=== PATIENT | male | born 1945 | race Caucasian/White ===

== ENCOUNTER → 2017-04-23 | Outpatient (CLI) | payer OTHER ==
--- NOTE | ~2017-04-23 | CT57 ---
[facility] A Service of [facility] & [facility] RADIOLOGY TEXT RESULTS PATIENT: FELICIA ROQUE LOCATION: [facility] : 45 UNIT #: [id number] AGE: [address]: TEMITOPE Bell APRN SEX: M ORDER DR: [id number] [facility] [address] [facility] [address] [place], [place] [address] [id number] O MR#: [id number] Acc #: [id number] NAME: FELICIA ROQUE : 1945 SEX: M STUDY DATE/TIME: 04/23/2017 13:08 UNIT: [facility] ROOM: STUDY DESCRIPTION: CT Chest Wo Cont Attending Physician: Temitope Sheikh Aprn Referring Physician: Temitope Sheikh Aprn Ordering Physician: Temitope Sheikh Aprn Primary Care Physician: Temitope Sheikh Aprn MEDICAL IMAGING REPORT This report is preliminary unless electronic signature is present EXAM CT chest without IV contrast. COMPARISON September 14, 2016 May 14, 2016. INDICATION 72-year-old male with chest pain for 6 months. Followup of pulmonary nodule and thoracic aortic aneurysm. FINDINGS Axial CT imaging of the chest was performed without IV contrast. Coronal sagittal reformats were constructed. Lack of IV contrast limits evaluation of vasculature and adenopathy. This CT exam was performed with one or more of the following radiation dose reduction techniques: automatic control, adjustment of mA and/or kV according to patient size, and iterative reconstruction. There is minimal bilateral gynecomastia. There is incidental note of sternalis muscles bilaterally, a normal anatomic variant. No adenopathy within the chest. Normal caliber of the pulmonary artery. Stable caliber of the ascending aorta measuring up to 3.7 cm and stable caliber of the distal aortic arch measuring up to 3.5 cm. Stable caliber of the descending thoracic aorta. Measures up to 3.1 cm. Normal heart size, without pericardial effusion. No pneumothorax. Airways are widely patent. There is moderate paraseptal emphysematous change with subpleural blebs noted in the pulmonary apices and within the dependent lower lobes. There are grossly stable tree-in-bud nodules within the posterior right upper lobe, however one of these nodules may have increased slightly in size, measuring up to 4 mm (image 40 of the axial series). This is as compared to May 14, 2016 as well as September 14, 2016. Pleural-based nodular density in the right upper lobe measuring up to approximately 4 mm is unchanged (image 34). Band-like opacity with associated nodularity is STS. [facility] A Service of [facility] RADIOLOGY TEXT RESULTS PATIENT: FELICIA ROQUE LOCATION: [facility] : 45 UNIT #: [id number] AGE: [address]: TEMITOPE Bell, TRAINING REPRESENTATIVE SEX: M ORDER DR: unchanged in the right pulmonary apex with 2 focal nodular densities measuring 4 mm and 3 mm and new 5 mm irregular nodule in the right upper lobe (image 55). There are also new clustered nodules in the inferomedial aspect of the right upper lobe, with largest discrete nodule measuring up to 6 mm. Stable 4.5 mm nodule in the right middle lobe anteriorly (image 65). Nodule in the anterior medial right middle lobe appears to be increasing in size measuring up to 1.9 cm maximal dimension as compared to 1.6 cm in September 14, 2016. This is on axial image 82 and sagittal image 37. There is adjacent band-like attenuation, which appears to have increased from September 14, 2016, best appreciated on axial image 87 in the right middle lobe. This could potentially represent a developing malignancy. Bronchiectasis is again noted, predominately in the upper and lower lobes. There is also some bronchiectasis in the right middle lobe adjacent to the enlarging nodule. Prior cholecystectomy. Calcification of the proximal celiac artery. There are also calcifications at the origins of the renal arteries. Simple cyst in the superior pole of the right kidney measuring up to 2.3 cm. There is a questionable aneurysm of the celiac artery measuring 1.2 cm, not significantly changed from comparison of September 14, 2016. No acute fractures or suspicious osseous lesions. IMPRESSION 1. Stable caliber of the thoracic aorta, measuring up to 3.8 cm at the ascending aspect and up to 3.5 cm in the distal arch and up to 3.1 cm in the descending aspect. 2. 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 3. Some stable and some new pulmonary nodules as described in the body of the report. Most suspicious of these is a nodule in the right middle lobe which appears to measure up to 1.9 cm and has increased in size. There is some associated band-like attenuation which favors atelectasis which has increased as well. It is uncertain how much of this finding may reflect atelectasis, and how much may reflect true pulmonary nodule. Given the size and interval enlargement since September 2016, PET/CT is recommended for further evaluation. If this does not have increased FDG activity consideration of CT chest followup without IV contrast in 3 months is recommended. 4. Background of moderate to severe emphysema is grossly unchanged. 5. Other incidental findings as described in the body of the report. Dictated by... Filippo Hickman M.D. THIS IS AN ELECTRONICALLY VERIFIED REPORT [facility] A Service of [facility] RADIOLOGY TEXT RESULTS PATIENT: FELICIA ROQUE LOCATION: [facility] : 45 UNIT #: [id number] AGE: [address]: TEMITOPE Bell, TRAINING REPRESENTATIVE SEX: M ORDER DR: Filippo Hickman M.D. at 04/28/2017 6:30 PM GISEL/rnr TD: 04/24/2017 02:16 JOB #: [id number] MEDICAL IMAGING REPORT Page 1 of 1 COPY
== END | disposition home or self-care (01) ==
LOC: CCAT 12:46
DX: R91.1 Solitary pulmonary nodule (principal); I72.8 Aneurysm of other specified arteries; J43.9 Emphysema, unspecified; R91.8 Other nonspecific abnormal finding of lung field
CPT/HCPCS: 71250